=== PATIENT | female | born 2005 | race Caucasian/White ===

== ENCOUNTER 2024-03-25 00:38 | Emergency (ER) | payer BC ==
[2024-03-25 00:48] VITALS: BP 118/79; PULSE 80; RESP 20; TEMP 98.3; BMI 27.3
[2024-03-25] MEDS ORDERED: FAMOTIDINE 20 MG/50 ML IVPB 20 MG/50 ML MG IVPB ONE (01:39)
[2024-03-25] MEDS ORDERED: ACETAMINOPHEN INJECTION 100 ML IVPB ONE (01:39)
[2024-03-25] MEDS ORDERED: ONDANSETRON 4 MG/2 ML VIAL ONE (01:39)
[2024-03-25] MEDS: LACTATED RINGERS SOLUTION 1000 ML INFUS.BAG IV ONE (02:01)
[2024-03-25] MEDS: ACETAMINOPHEN 1000 MG/100 ML BAG IVPB ONE (02:01)
[2024-03-25] MEDS: ONDANSETRON 4 MG/2 ML VIAL IVPUSH ONE (02:02)
[2024-03-25 02:08] LABS: BASO % 0.5 % (0-2.0); EOS % 1.6 % (0-4.5); HEMATOCRIT 38.8 % (32.4-45.2); HEMOGLOBIN 12.8 GM/dL (10.7-15.3); LYMPH % 29.4 % (8-40); MCH 25.6 pg (25.7-33.7); MCHC 32.9 g/dl (32.0-36.0); MEAN PLT VOLUME 9.2 fl (7.5-11.1); MONO % 7.2 % (3.8-10.2); NEUT % 61.3 % (42.8-82.8); PLATELET COUNT 214 10^3/uL (134-434); RBC 4.98 M/mm3 (3.60-5.2); RDW 13.1 % (11.6-15.6)
[2024-03-25 02:15] LABS: EPI CELLS 12 /uL (0-25.1); HYALINE CASTS 0 /uL (0-3.1); PH,URINE 5.5 (5.0-8.0); URINE APPEARANCE CLEAR; URINE BACTERIA >9,000 /uL (0-1359); URINE BILIRUBIN NEGATIVE (NEGATIVE); URINE COLOR YELLOW; URINE GLUCOSE (UA) NEGATIVE (NEGATIVE); URINE KETONE NEGATIVE (NEGATIVE); URINE LEUK ESTERASE TRACE (NEGATIVE); URINE NITRITE NEGATIVE (NEGATIVE); URINE PROTEIN TRACE (NEGATIVE); URINE RBC 1683 /uL (0-23.9); URINE WBC 61 /uL (0-25.8)
[2024-03-25] MEDS: FAMOTIDINE 20 MG/50 ML IVPB 20 MG/50 ML MG IVPB ONE (02:27)
[2024-03-25 02:30] LABS: POTASSIUM 3.5 mmol/L (3.5-5.1)
[2024-03-25 02:32] LABS: CALCIUM 9.1 mg/dL (8.5-10.1)
[2024-03-25 02:33] LABS: BLOOD UREA NITROGEN 9.3 mg/dL (7-18); MAGNESIUM 1.8 mg/dL (1.8-2.4)
[2024-03-25 02:35] LABS: CREATININE 0.7 mg/dL (0.55-1.3)
[2024-03-25] MEDS ORDERED: CEFTRIAXONE 1 GM/50 ML BAG ONE (02:36)
[2024-03-25 02:37] LABS: BILIRUBIN,TOTAL 0.3 mg/dL (0.2-1); TOT PROT 7.1 g/dl (6.4-8.2)
[2024-03-25 02:40] LABS: INR 0.93 (0.83-1.09); PROTHROMBIN TIME (PATIENT) 10.5 SEC (9.7-13.0)
[2024-03-25 02:43] LABS: ACTIVATED PTT 31.4 SECONDS (25.2-36.5)
[2024-03-25] MEDS: CEFTRIAXONE 1 GM in DEXTROSE 5%-WATER - 50 ML IVPB ONE (02:46)
[2024-03-25] MEDS ORDERED: NITROFURANTOIN MACROCRYSTAL 50 MG CAPSULE (FP) ONE (02:57)
[2024-03-25] MEDS: NITROFURANTOIN MACROCRYSTAL 50 MG CAPSULE (FP) PO SCH (02:58)
== END 2024-03-25 03:21 | disposition home or self-care (01) ==
LOC: JER 00:38
PROC: 3E033GC Introduction of Other Therapeutic Substance into Peripheral Vein, Percutaneous Approach (ICD-10-PCS; principal; 2024-03-25)
PROC: 3E033GC Introduction of Other Therapeutic Substance into Peripheral Vein, Percutaneous Approach (ICD-10-PCS; 2024-03-25)
PROC: 3E033NZ Introduction of Analgesics, Hypnotics, Sedatives into Peripheral Vein, Percutaneous Approach (ICD-10-PCS; 2024-03-25)
DX: R07.2 Precordial pain (principal); R11.0 Nausea; N30.00 Acute cystitis without hematuria; Z20.822 Contact with and (suspected) exposure to COVID-19
CPT/HCPCS: 0241U-QW; 36415; 80053; 81003; 83690; 83735; 84484; 84703; 85025; 85610; 85730; 87086; 87186; 93005; 93010; 99284-25; J0131

== ENCOUNTER 2024-04-26 01:30 | Emergency (ER) | payer BC ==
[2024-04-26 01:35] VITALS: BP 116/79; PULSE 76; RESP 18; TEMP 98.6; BMI 27.3
[2024-04-26] MEDS ORDERED: ACETAMINOPHEN INJECTION 100 ML IVPB ONE (02:27)
[2024-04-26] MEDS ORDERED: ONDANSETRON *ODT* 4 MG TABLET ONE (02:27)
[2024-04-26] MEDS ORDERED: ONDANSETRON 4 MG/2 ML VIAL ONE (02:27)
[2024-04-26 02:30] LABS: EPI CELLS 13 /uL (0-25.1); HCG,QUALITATIVE URINE Negative; HYALINE CASTS 1 /uL (0-3.1); URINE APPEARANCE CLOUDY; URINE BACTERIA 2202 /uL (0-1359); URINE BILIRUBIN NEGATIVE (NEGATIVE); URINE COLOR ORANGE; URINE GLUCOSE (UA) NEGATIVE (NEGATIVE); URINE KETONE NEGATIVE (NEGATIVE); URINE LEUK ESTERASE 3+ (NEGATIVE); URINE NITRITE NEGATIVE (NEGATIVE); URINE PROTEIN 2+ (NEGATIVE); URINE RBC 1405 /uL (0-23.9); URINE UROBILINOGEN 0.2 mg/dL (0.2-1.0); URINE WBC 640 /uL (0-25.8)
[2024-04-26] MEDS ORDERED: FAMOTIDINE 20 MG/50 ML IVPB 20 MG/50 ML MG IVPB ONE (02:36)
[2024-04-26] MEDS: ONDANSETRON 4 MG/2 ML VIAL IVPUSH ONE (02:38)
[2024-04-26] MEDS: ACETAMINOPHEN 1000 MG/100 ML BAG IVPB ONE (02:38)
[2024-04-26] MEDS: ONDANSETRON *ODT* 4 MG TABLET SL ONE (02:38)
[2024-04-26] MEDS: FAMOTIDINE 20 MG/50 ML IVPB 20 MG/50 ML MG IVPB ONE (02:47)
[2024-04-26] MEDS: LACTATED RINGERS SOLUTION 1000 ML INFUS.BAG IV ONE (02:47)
[2024-04-26 02:52] LABS: BASO % 0.7 % (0-2.0); EOS % 0.7 % (0-4.5); HEMOGLOBIN 12.2 GM/dL (10.7-15.3); LYMPH % 20.6 % (8-40); MCH 25.7 pg (25.7-33.7); MCHC 32.9 g/dl (32.0-36.0); MEAN CELL VOLUME 77.9 fl (80-96); MEAN PLT VOLUME 9.6 fl (7.5-11.1); MONO % 6.8 % (3.8-10.2); NEUT % 71.2 % (42.8-82.8); PLATELET COUNT 254 10^3/uL (134-434); RBC 4.76 M/mm3 (3.60-5.2); RDW 13.4 % (11.6-15.6); WHITE BLOOD COUNT 10.4 K/mm3 (4.0-10.0)
[2024-04-26 03:11] LABS: CALCIUM 9.1 mg/dL (8.5-10.1)
[2024-04-26 03:12] LABS: ALBUMIN 4.2 g/dl (3.4-5.0); BLOOD UREA NITROGEN 7.3 mg/dL (7-18)
[2024-04-26 03:15] LABS: CREATININE 0.7 mg/dL (0.55-1.3)
[2024-04-26 03:16] LABS: BILIRUBIN,TOTAL 0.4 mg/dL (0.2-1)
[2024-04-26 03:17] LABS: TOT PROT 7.4 g/dl (6.4-8.2)
== END 2024-04-26 06:54 | disposition home or self-care (01) ==
LOC: JER 01:30
PROC: 3E033GC Introduction of Other Therapeutic Substance into Peripheral Vein, Percutaneous Approach (ICD-10-PCS; principal; 2024-04-26)
PROC: 3E033NZ Introduction of Analgesics, Hypnotics, Sedatives into Peripheral Vein, Percutaneous Approach (ICD-10-PCS; 2024-04-26)
PROC: 3E033GC Introduction of Other Therapeutic Substance into Peripheral Vein, Percutaneous Approach (ICD-10-PCS; 2024-04-26)
DX: R10.84 Generalized abdominal pain (principal); R11.0 Nausea
CPT/HCPCS: 36415; 74177-TC; 80053; 81003; 83690; 84703; 85025; 87086; 99285-25; J0131